=== PATIENT | female | born 1965 | race American Indian/Alaskan Native ===

== ENCOUNTER 2021-01-31 10:46 | Day surgery (SDC) | payer OTHER ==
[2021-01-31] MEDS ORDERED: MIDAZOLAM 2 MG/2 ML INJ ONE (11:20)
--- NOTE | 2021-01-31 11:29 | Anesthesia Consultation ---
Anesthesia Consult and Med Hx Date of service: 01/31/21 - Airway Anesthetic Teeth Evaluation: Good ROM Head & Neck: Adequate Mental/Hyoid Distance: Adequate Mallampati Class: Class II Intubation Access Assessment: Probably Good - Pre-Operative Health Status ASA Pre-Surgery Classification: ASA3 Proposed Anesthetic Plan: MAC - Pulmonary Hx Smoking: No Hx Asthma: No Hx Respiratory Symptoms: No SOB: No COPD: No Home Oxygen Therapy: No Hx Pneumonia: No Hx Sleep Apnea: Yes - Cardiovascular System Hx Hypertension: Yes Hx Coronary Artery Disease: No Hx Heart Attack/AMI: No Hx Angina: No Hx Percutaneous Transluminal Coronary Angioplasty (PTCA): No Hx Cardia Arrhythmia: No Hx Pacemaker: No Hx Internal Defibrillator: No Hx Valvular Heart Disease: No Hx Heart Murmur: Yes Hx Peripheral Vascular Disease: No - Central Nervous System Hx Neuromuscular Disorder: No Hx Seizures: No CVA: No Hx Back Pain: Yes (lower back pain) Hx Psychiatric Problems: Yes (anexity) - Gastrointestinal Hx Ulcer: No Hx Gastroesophageal Reflux Disease: Yes - Endocrine Hx Renal Disease: No Hx End Stage Renal Disease: No Hx Cirrhosis: No Hx Liver Disease: No Hx Insulin Dependent Diabetes: No Hx Non-Insulin Dependent Diabetes: No Hx Thyroid Disease: No Hx Hypothyroidism: No Hx Hyperthyroidism: No - Hematic Hx Anemia: No Hx Sickle Cell Disease: No - Other Systems Hx Alcohol Use: Yes (occ.) Hx Substance Use: No Hx Cancer: No Hx Obesity: Yes
--- NOTE | 2021-01-31 11:29 | Anesthesia Day of Surgery ---
Anesthesia Day of Surgery - Day of Surgery Patient Examined: Yes Patient H&P Reviewed: Yes Patient is NPO: Yes
[2021-01-31] MEDS ORDERED: LIDOCAINE MPF (2%) 20 MG/1 ML VIAL 5 ML ONE (11:30)
[2021-01-31] MEDS ORDERED: FAMOTIDINE 20 MG/2 ML INJ IV ONE (11:31)
[2021-01-31] MEDS ORDERED: propofoL 200 MG/20 ML VIAL IV ONE (11:34)
[2021-01-31] MEDS ORDERED: SODIUM CHLORIDE 0.9% 1000 ML 1,000 ML IV SCH (12:00)
--- NOTE | 2021-01-31 12:00 | Procedure Note ---
Date of procedure: 01/31/21 Pre-op diagnosis: GERD/ Dyspepsia Post-op diagnosis: other (Mild to Moderate Erosive Esophagitis/ R/O Eosinophilic Esophagitis/Gastritis/ Duodenitis/ R/o Celiac Disease) Procedure: EGD with Biopsy Anesthesia: [facility] [place] Surgeon: ADRIAN ASHFORD Estimated blood loss: minimal Pathology: list Specimen disposition: to lab Condition: stable Disposition: same day (Treat with PPI and Probiotics. Avoid aspirin and NSAID for 4 days; otherwise resume home medication and follow up in 1 to 2 weeks ([phone]).)
--- NOTE | 2021-01-31 12:07 | Operative Report ---
PROCEDURE: Esophagogastroduodenoscopy with biopsy. INDICATIONS: A 55-year-old slightly obese -English female with a family history of cancer, lately has been having some dyspeptic symptoms and abdominal pain. She states that she had a colonoscopy done 2 years ago and had several polyps removed at that time. EGD was done to make sure there was not any significant upper GI pathology present. DESCRIPTION OF PROCEDURE: The procedure was done after getting informed consent with MAC anesthesia. Instrument was passed through the hypopharynx into the esophagus, which showed some mild to moderate erosive esophagitis type. Biopsy was done from the distal esophagus to assess for the severity of the erosive esophagitis. Additional biopsy was also done from the midesophagus to rule out for eosinophilic esophagitis. Stomach showed gastritis. No ulcers were noted in the straight or the retroverted view. Pylorus was patent. Duodenum in the first and the second portion appeared normal. Biopsy was done from the gastric antrum, gastric body and angular incisura to rule out for H. pylori and atrophic gastritis. The duodenum in the second portion showed evidence of duodenitis. Biopsy was done from the second part to assess for the duodenitis and also to assess for any associated celiac disease. ASSESSMENT: Abdominal pain, no peptic ulcer disease noted, dyspepsia, mild to moderate erosive esophagitis, gastritis, duodenitis, rule out celiac disease, rule out eosinophilic esophagitis. PLAN: To treat the patient with probiotics, PPI, antiemetics if needed, and to avoid aspirin and aspirin-related products, and follow up in the office in 1-2 weeks' time. [facility]# [id number] MABEL/ELISE
[2021-01-31 13:34] VITALS: BP 149/89
--- NOTE | 2021-01-31 15:17 | Post Anesthesia Evaluation ---
- Post Anesthesia Evaluation Patient Participated: Yes Airway Patent: Yes Stable Respiratory Function: Yes Nausea/Vomiting: No Temp > 96.8F: Yes Pain Manageable: Yes Adequeate Hydration: Yes Anesthesia Complications: No Block Receding Appropriately: Not Applicable Patient on Ventilator: No
== END 2021-01-31 13:00 | disposition home or self-care (01) ==
LOC: GIO 10:46
DX: R10.13 Epigastric pain (principal); K29.70 Gastritis, unspecified, without bleeding; K29.80 Duodenitis without bleeding; K31.89 Other diseases of stomach and duodenum; K21.00 Gastro-esophageal reflux disease with esophagitis, without bleeding; I10 Essential (primary) hypertension; G47.30 Sleep apnea, unspecified; E66.9 Obesity, unspecified; Z68.34 Body mass index [BMI] 34.0-34.9, adult; Z88.8 Allergy status to other drugs, medicaments and biological substances; Z79.899 Other long term (current) drug therapy; Z72.89 Other problems related to lifestyle
CPT/HCPCS: 43239; 88305; 88342; J2250; J2704; J7030

== ENCOUNTER 2021-11-19 11:48 | Emergency (ER) | payer OTHER ==
[2021-11-19 11:55] VITALS: BP 113/63
--- NOTE | 2021-11-19 13:20 | Emergency Department Report ---
ED General Adult HPI - General Chief complaint: Chest Pain Stated complaint: CHEST PAIN Time Seen by Provider: 11/19/21 12:53 Source: patient Mode of arrival: Ambulatory Limitations: No Limitations - History of Present Illness Initial comments: Patient presents because of chest pain. She is describing a pain in the left chest. She has been having problems for several months with intermittent numbness and pain in the left arm and neck. She states that she had been hospitalized downtown for this and was told that her heart was noted. She had a cardiac cath done. She has developed pain in the left neck, left arm, and radiating down the left arm into the hand. Now the pain is in up into the chest area and the clavicle area. She states that she is not sure it was related to a pinched nerve which is what she was told before. She has had a prior cervical radiculopathy on the right requiring surgery. She knows that she has nerve damage and a herniated disc or something of that nature on the left causing her symptoms. She was concerned about the chest pain and decided to come in today. - Related Data Home Medications Medication Instructions Recorded Confirmed Last Taken Potassium 20 meq PO DAILY 01/31/21 01/31/21 01/30/21 09:00 Rosuvastatin (Nf) 10 mg PO DAILY 01/31/21 01/31/21 01/30/21 20:00 Spironolactone 25 mg PO DAILY 01/31/21 01/31/21 01/30/21 09:00 amLODIPine 5 mg PO DAILY 01/31/21 01/31/21 01/31/21 08:00 Previous Rx's Medication Instructions Recorded Last Taken Type Gabapentin 100 mg PO Q8HR #90 capsule 11/19/21 Unknown Rx Lidocaine [Lidoderm] 1 each TP DAILY #30 patch 11/19/21 Unknown Rx Metaxalone [Skelaxin] 800 mg PO TID #9 tablet 11/19/21 Unknown Rx Allergies Allergy/AdvReac Type Severity Reaction Status Date / Time adhesive AdvReac Rash Verified 01/31/21 11:11 NSAIDS (Non-Steroidal AdvReac Nausea Verified 01/31/21 11:11 Anti-Inflamma ED Review of Systems ROS: Stated complaint: CHEST PAIN Other details as noted in HPI Comment: All other systems reviewed and negative Constitutional: denies: fever Eyes: denies: eye pain ENT: denies: throat pain Respiratory: denies: cough Cardiovascular: as per HPI Endocrine: denies: unexplained weight loss Gastrointestinal: denies: abdominal pain Genitourinary: denies: dysuria Musculoskeletal: as per HPI Skin: denies: rash Neurological: as per HPI. denies: headache Hematological/Lymphatic: denies: easy bruising ED Past Medical Hx - Past Medical History Previous Medical History?: Yes Hx Hypertension: Yes Hx Heart Attack/AMI: No Hx Liver Disease: No Hx Renal Disease: No Hx Sickle Cell Disease: No Hx Seizures: No Hx Asthma: No Hx COPD: No - Surgical History Past Surgical History?: No Hx Pacemaker: No Hx Internal Defibrillator: No - Family History Family history: hypertension - Social History Smoking Status: Never Smoker - Medications Home Medications: Home Medications Medication Instructions Recorded Confirmed Last Taken Type Potassium 20 meq PO DAILY 01/31/21 01/31/21 01/30/21 09:00 History Rosuvastatin (Nf) 10 mg PO DAILY 01/31/21 01/31/21 01/30/21 20:00 History Spironolactone 25 mg PO DAILY 01/31/21 01/31/21 01/30/21 09:00 History amLODIPine 5 mg PO DAILY 01/31/21 01/31/21 01/31/21 08:00 History Gabapentin 100 mg PO Q8HR #90 capsule 11/19/21 Unknown Rx Lidocaine [Lidoderm] 1 each TP DAILY #30 patch 11/19/21 Unknown Rx Metaxalone [Skelaxin] 800 mg PO TID #9 tablet 11/19/21 Unknown Rx ED Physical Exam - General Limitations: No Limitations, Other (Pulse ox noted and normal) General appearance: alert, in no apparent distress - Head Head exam: Present: atraumatic, normocephalic - Eye Eye exam: Present: normal appearance, EOMI - ENT ENT exam: Present: normal orophraynx, normal external ear exam - Neck Neck exam: Present: normal inspection, tenderness (Paraspinous musculature). Absent: meningismus - Respiratory Respiratory exam: Present: normal lung sounds bilaterally. Absent: respiratory distress - Cardiovascular Cardiovascular Exam: Present: regular rate, normal rhythm - GI/Abdominal GI/Abdominal exam: Present: soft - Extremities Exam Extremities exam: Present: normal capillary refill. Absent: calf tenderness - Back Exam Back exam: Present: other (Patient has tenderness in the left neck area which recreates her pain. She has some muscle spasm in the trapezius area. Again, this recreates all of her symptoms.). Absent: CVA tenderness (R), CVA tenderness (L) - Neurological Exam Neurological exam: Present: alert, oriented X3, CN II-XII intact, normal gait. Absent: motor sensory deficit - Psychiatric Psychiatric exam: Present: normal affect, normal mood - Skin Skin exam: Present: warm, dry ED Course Vital Signs 11/19/21 11:52 Temperature 99.1 F Pulse Rate 73 Respiratory 16 Rate Blood Pressure 113/63 [Left] O2 Sat by Pulse 98 Oximetry - Reevaluation(s) Reevaluation #1: 11/19/21 13:19 EKG was noted. X-ray was ordered. Old records reviewed. Reevaluation #2: 11/19/21 14:00 Work-up was complete and the patient was discharged ED Medical Decision Making - EKG Data -: EKG Interpreted by Me - EKG Data 11/19/21 13:20 1310-EKG shows normal sinus rhythm at 70. Intervals are normal including a QRS of 94 and a QT corrected of 439. Patient has no ST elevation to suggest any per there is no ST depression suggestive of ischemia. Patient has no ectopy. Intervals are normal. This is a normal EKG. There is no change from prior. - Radiology Data Radiology results: report reviewed - Medical Decision Making Patient presents secondary to chest pain. What she actually has a cervical radiculopathy. She has had a cardiac cath in August which was negative for ACS. I certainly do not believe this represents ACS. She has no neurologic deficit suggestive of weakness. There is noes evidence of injury. I do not believe this represents cauda equina. She has no history of fever and does not have neurologic deficit that would suggest cervical epidural abscess. Critical Care Time: No Critical care attestation.: If time is entered above; I have spent that time in minutes in the direct care of this critically ill patient, excluding procedure time. ED Disposition Clinical Impression: Neck pain on left side, Cervical radiculopathy, Left-sided chest pain Disposition: HOME / SELF CARE / HOMELESS Is pt being admited?: No Condition: Stable Instructions: Nonspecific Chest Pain, Adult, Radicular Pain Additional Instructions: Limit lifting. Try ice and heat. Return for problems. Follow-up with your neurosurgeon to discuss further treatment. Follow-up with the referral physician if you do not have a neurosurgeon. Prescriptions: Gabapentin 100 mg PO Q8HR #90 capsule Lidocaine [Lidoderm] 1 each TP DAILY #30 patch Metaxalone [Skelaxin] 800 mg PO TID #9 tablet Referrals: PRIMARY MD YAKELIN [Primary Care Provider] - 3-5 Days JOSSELYN MARCUS MD [Staff Physician] - 3-5 Days
[2021-11-19] MEDS ORDERED: LIDOCAINE 5% 1 EACH PATCH TD ONE (13:21)
--- NOTE | 2021-11-19 13:41 | XRay Report ---
CHEST 2 VIEWS INDICATION: Chest pain. COMPARISON: none FINDINGS: Support devices: None. Heart: Within normal limits. Lungs/pleura: No acute air space or interstitial disease. No pneumothorax. Additional findings: None. IMPRESSION: No acute findings. Signer Name: Domo Sierra Jr, MD Signed: 11/19/2021 1:37 PM Workstation Name: [id number]
--- NOTE | 2021-11-20 08:49 | Electrocardiograph Report ---
[facility] Test Date: 2021-11-19 Test Time: 13:10:13 Pat Name: JOHN WRIGHT Department: Room: Gender: F Quality Head: OPAL : 1965 Requested By: STEPHEN DIALLO Order Number: [id number] Reading MD: Tunde Espinal Measurements Intervals [place] Rate: 70 P: 29 MD: 198 QRS: 10 QRSD: 94 T: 48 QT: 405 QTc: 439 Interpretive Statements Sinus rhythm No previous ECG available for comparison Electronically Signed On 11-20-2021 8:49:08 EST by Tunde Espinal
== END 2021-11-19 14:41 | disposition home or self-care (01) ==
LOC: ED 11:48
DX: M54.2 Cervicalgia (principal); M54.12 Radiculopathy, cervical region; R07.89 Other chest pain; Z88.6 Allergy status to analgesic agent; Z88.8 Allergy status to other drugs, medicaments and biological substances; I10 Essential (primary) hypertension
CPT/HCPCS: 71046; 93005; 93010; 99283